=== PATIENT | female | born 1995 | race Caucasian/White ===

== ENCOUNTER 2018-05-27 14:45 | Emergency (ER) | payer OTHER, BC, MEDICAID ==
--- NOTE | 2018-05-27 15:07 | ERPHSYRPT ---
- History of Present Illness Time Seen by Provider: 05/27/18 15:02 Source: patient Exam Limitations: no limitations Patient Subjective Stated Complaint: pt tripped and fell about 1100 today and hit head on coffee table and landed on right side, pt co pain to left knee. pt is 15 weeks Triage Nursing Assessment: pt walked in, resp easy, skion w/d/p.alert, has swelling to left knee, and abrasion to left elbow Physician History: patient is 15 weeks who tripped and fell hitting her left knee occurred today prior to arrival. Patient with noted swelling and bruise to left medial knee area. Patient is able to bend knee, although some discomfort with this and movement/weightbearing. Patient also complains of intermittent crampy abdominal pain, but denies hitting her abdomen and fall. Patient has had previous ultrasound of baby by her [employer] doctor. Method of Injury: direct blow Occurred: just prior to arrival Quality: constant, aching Severity of Pain-Max: moderate Severity of Pain-Current: mild Lower Extremities Pain: knee: left Modifying Factors: Improves With: immobilization (improves), movement (worsens) . Worsens With: pain medication Associated Symptoms: No unable to bear weight, No dizzy, No fainted, No snapping sensation Allergies/Adverse Reactions: No Known Drug Allergies Allergy (Verified 05/27/18 15:01) Home Medications: Vits W-Ca,Fe,FA(<1Mg) [] 1 ea DAILY 05/27/18 [History] Hx Tetanus, Diphtheria Vaccination/Date Given: No Hx Influenza Vaccination/Date Given: Yes Hx Pneumococcal Vaccination/Date Given: No Immunizations Up to Date: Yes - Review of Systems Constitutional: No Symptoms, No Fever, No Chills Eyes: No Symptoms Ears, Nose, & Throat: No Symptoms Respiratory: No Symptoms, No Cough, No Dyspnea Cardiac: No Symptoms, No Chest Pain, No Edema, No Syncope Abdominal/Gastrointestinal: Abdominal Pain (minimal), No Nausea, No Vomiting, No Diarrhea Genitourinary Symptoms: No Symptoms, No Dysuria Musculoskeletal: Joint Pain (L knee), No Back Pain, No Neck Pain Skin: No Symptoms, No Rash Neurological: No Dizziness, No Focal Weakness, No Sensory Changes Psychological: No Symptoms Endocrine: No Symptoms Hematologic/Lymphatic: No Symptoms Immunological/Allergic: No Symptoms All Other Systems: Reviewed and Negative - Past Medical History Pertinent Past Medical History: No - Past Surgical History Past Surgical History: No - Social History Smoking Status: Current every day smoker Exposure to second hand smoke: Yes Drug Use: none Patient Lives Alone: No - Female History Hx Last Menstrual Period: january Hx Now: Yes Expected Date of Delivery: 11/09/18 - Nursing Vital Signs Nursing Vital Signs: Initial Vital Signs Temperature 97.0 F 05/27/18 14:56 Pulse Rate 83 05/27/18 14:56 Respiratory Rate 16 05/27/18 14:56 Blood Pressure 114/64 05/27/18 14:56 O2 Sat by Pulse Oximetry 99 05/27/18 14:56 Pain Scale Pain Intensity 2 - Physical Exam General Appearance: no apparent distress, alert Eyes, Ears, Nose, Throat Exam: moist mucous membranes Neck Exam: normal inspection, non-tender, supple Cardiovascular/Respiratory Exam: chest non-tender, normal breath sounds, regular rate/rhythm, no respiratory distress Gastrointestinal/Abdominal Exam: non-tender, soft, no organomegaly, guarding Back Exam: normal inspection, No vertebral tenderness Hips Exam: bilateral: non-tender, normal inspection, normal range of motion, no evidence of injury Knees Exam: right knee: non-tender, normal inspection, normal range of motion, no evidence of injury, left knee: bone tenderness Ankle Exam: bilateral ankle: non-tender, normal inspection, normal range of motion, no evidence of injury Foot Exam: bilateral foot: non-tender, normal inspection, normal range of motion , no evidence of injury DTR - Lower Extremities Exam: knee (R): 2+, knee (L): 2+ Neuro/Tendon Exam: normal sensation, normal motor functions Mental Status Exam: alert, oriented x 3, cooperative Skin Exam: normal color, warm, dry SpO2 Interpretation: normal SpO2: 99 - Course Nursing assessment & vital signs reviewed: Yes - Radiology Exams Left Knee X-ray Interpretation: Interpreted by me, Negative Ordered Tests: Active Orders 24 hr Category Date Time Status Heart Tones-ED STAT Care 05/27/18 15:01 Active KNEE (1 OR 2 VIEW) Stat Exams 05/27/18 15:00 Taken - Progress Progress: improved Progress Note: 05/27/18 15:09 FHT 150's. Will get L knee X-ray to R/O fxs. Counseled pt/family regarding: diagnosis, rad results - Departure Time of Disposition: 15:48 Departure Disposition: Home Clinical Impression: Contusion of left knee Condition: Stable Critical Care Time: No Instructions: Contusion (DC) Additional Instructions: ice to any sore areas, elevate, decrease weightbearing for next 1-2 days, Tylenol 1000 mg every 4-6 hours for pain/swelling. Return for worse pain, swelling, numbness, tingling, weakness or any problems
[2018-05-27 15:46] VITALS: BP 106/69; PULSE 94
[2018-05-27 15:51] VITALS: O2SAT 99
--- NOTE | 2018-05-27 16:29 | XRAY ---
Indication: Pain and bruising following fall. Comparison: None AP/lateral left knee demonstrates tiny medial/lateral condyle bone island. No other bone, articular, or soft tissue abnormalities.
== END 2018-05-27 16:02 | disposition home or self-care (01) ==
LOC: ED 14:45
DX: S80.02XA Contusion of left knee, initial encounter (principal); W01.190A Fall on same level from slipping, tripping and stumbling with subsequent striking against furniture, initial encounter; M25.562 Pain in left knee; Z33.1 Pregnant state, incidental
CPT/HCPCS: 73560; 99284

== ENCOUNTER 2020-03-13 08:01 | Emergency (ER) | payer OTHER ==
[2020-03-13] MEDS ORDERED: DECADRON 10MG INJ. IV ONE (08:18)
--- NOTE | 2020-03-13 08:29 | ERPHSYRPT ---
- History of Present Illness Time Seen by Provider: 03/13/20 08:06 Source: patient Exam Limitations: no limitations Patient Subjective Stated Complaint: Pt states that her throat has hurt for 2 days and is unable to eat, feels like knives when she swallows her spit, headache and [place] ear aches Triage Nursing Assessment: Pt drove self to the ER, c/o of sore throat, headache , [place] earache for past 2 days, unable to eat, vitals wnl, pt thinks she may have had a fever yesterday but did not check her temp, pulses normal, throat red with no pustules, has taken tylenol yesterday with no relief Physician History: Patient is here with sore throat for 2 to 3 days. No falls no trauma. Patient states that she has not been able to see PCP. She did make an appointment next week. Location: throat Quality: sore Radiation: none Severity: moderate Duration: 2-3 days Timing: gradual Modifying factors/associated signs and symptoms: OTC medications Timing/Duration: gradual onset Severity: mild ENT Location: throat Prearrival Treatment: over the counter meds Modifying Factors: Improves With: activity Associated Symptoms: ear pain (R), ear pain (L) Allergies/Adverse Reactions: No Known Drug Allergies Allergy (Verified 03/13/20 08:12) Hx Tetanus, Diphtheria Vaccination/Date Given: No Hx Influenza Vaccination/Date Given: Yes Hx Pneumococcal Vaccination/Date Given: No Travel Risk - International Travel Have you traveled outside of the country in past 3 weeks: No Have you or anyone close to you been diagnosed with or: No Do your reside in a community with a known COVID-19 case?: Yes If Yes where:: [place] - Coronavirus Screening Has patient experienced Coronavirus symptoms: No - Review of Systems Constitutional: No Fever, No Chills Eyes: No Symptoms Ears, Nose, & Throat: Ear Pain, Throat Pain Respiratory: No Cough, No Dyspnea Cardiac: No Chest Pain, No Edema, No Syncope Abdominal/Gastrointestinal: No Abdominal Pain, No Nausea, No Vomiting, No Diarrhea Genitourinary Symptoms: No Dysuria Musculoskeletal: No Back Pain, No Neck Pain Skin: No Rash Neurological: No Dizziness, No Focal Weakness, No Sensory Changes Psychological: No Symptoms Endocrine: No Symptoms All Other Systems: Reviewed and Negative - Past Medical History Pertinent Past Medical History: No - Past Surgical History Past Surgical History: Yes Female Surgical History: Tubal Ligation - Social History Smoking Status: Current every day smoker Exposure to second hand smoke: Yes Drug Use: none Patient Lives Alone: No - Female History Hx Last Menstrual Period: 02/24/2020 Hx Now: No - Nursing Vital Signs Nursing Vital Signs: Initial Vital Signs Temperature 97.6 F 03/13/20 08:05 Pulse Rate 97 H 03/13/20 08:05 Blood Pressure 121/77 03/13/20 08:05 O2 Sat by Pulse Oximetry 98 03/13/20 08:05 Pain Scale Pain Intensity 7 - Physical Exam General Appearance: no apparent distress, alert Eye Exam: bilateral eye: PERRL, EOMI Ear Exam: bilateral ear: TM normal Nasal Exam: normal inspection Throat Exam: pharynx normal, moist mucus membranes, No tonsillar exudate Neck Exam: supple Cardiovascular/Respiratory Exam: normal breath sounds, regular rate/rhythm Abdominal Exam: non-tender, soft Neurologic Exam: alert, oriented x 3, sensation nml, No motor deficits Skin Exam: normal color, warm, dry SpO2 Interpretation: normal SpO2: 98 Comments: No trismus, able to fully extend neck, normal range of motion of neck without pain. Uvula is midline, no swelling of the mouth, noraml oropharynx. No exudate, no signs of meningitis, no floor of mouth swelling, no hot potato voice on exam. No buccal swelling, no gum bleeding, no signs of tooth abscess/infection. - Course Nursing assessment & vital signs reviewed: Yes Ordered Tests: Medication Summary Discontinued Medications Generic Name Dose Route Start Last Admin Trade Name George PRN Reason Stop Dose Admin Dexamethasone Sodium Phosphate 8 mg 03/13/20 08:18 03/13/20 08:31 Decadron 10mg Inj. IV 03/13/20 08:19 8 mg STAT ONE Administration Dexamethasone Sodium Phosphate Confirm 03/13/20 08:30 Decadron 10mg Inj. Administered 03/13/20 08:31 Dose 10 mg .ROUTE .STK-MED ONE Lab/Rad Data: Laboratory Results 03/13/20 Range/Units 08:19 Group A Strep Antibody DETECTED (NEGATIVE) - Progress Progress: improved Progress Note: 03/13/20 08:28 We will obtain a rapid strep swab, IM Decadron for patient's symptoms. 03/13/20 08:58 Patient is strep positive. We will treat with amoxicillin going home. She will follow-up with her PCP to ensure resolution of symptoms. Return here for new or changing symptoms. Counseled pt/family regarding: lab results, diagnosis, need for follow-up, smoking cessation - Departure Departure Disposition: Home Clinical Impression: Strep pharyngitis Condition: Stable Critical Care Time: No Instructions: Sore Throat, Adult (DC) Prescriptions: Amoxicillin 500 mg Cap [Amoxil 500 mg] 500 mg PO BID #20 capsule
[2020-03-13] MEDS ORDERED: DECADRON 10MG INJ. ONE (08:30)
[2020-03-13 09:12] VITALS: BP 110/72; PULSE 93; O2SAT 96
== END 2020-03-13 09:10 | disposition home or self-care (01) ==
LOC: ED 08:01
DX: J02.0 Streptococcal pharyngitis (principal); Z72.0 Tobacco use
CPT/HCPCS: 87651; 96372; 99284; J1100